=== PATIENT | female | born 1955 | race Two or more races ===

== ENCOUNTER 2020-11-28 15:20 | Emergency (ER) | payer OTHER ==
[~2020-11-28] VITALS: Ht 149.9 cm; Wt 65.8 kg
[2020-11-28] MEDS ORDERED: SKELAXIN800 MG PO (23:08)
[2020-11-28] MEDS ORDERED: NAPROXEN250 MG PO (23:08)
== END 2020-11-28 23:20 | disposition home or self-care (01) ==
LOC: ER 15:20
DX: M54.50 Low back pain, unspecified (principal)